=== PATIENT | female | born 1990 | race Caucasian/White ===

== ENCOUNTER → 2017-05-31 | Outpatient (CLI) | payer BC ==
[~2017-05-31] MED LIST: ACET-1256 PO; CALC-440 PO; MULT-506 PO
[2017-05-31 09:16] LABS: BASO % 0.2 %; BASO ABS # 0.02 K/uL (0-0.2); COMPLETE YES; EOS % 2.2 %; HEMATOCRIT 41.2 % (37-47); IG% 0.3 %; LYMPH % 16.3 %; LYMPH ABS # 1.43 K/uL (1.2-3.4); MEAN CELL VOLUME 98.6 fL (80-100); MEAN CORPUSCULAR HEMOGLOBIN 32.8 pg (25-34); MEAN CORPUSCULAR HGB CONC 33.3 g/dl (32-36); MEAN PLATELET VOLUME 10.2 fL (7.4-10.4); MONO % 9.9 %; NEUT % 71.1 %; PLATELET COUNT 239 K/uL (130-400); RED BLOOD COUNT 4.18 M/uL (4.2-5.4); WHITE BLOOD COUNT 8.75 K/uL (4.8-10.8)
[2017-05-31 09:46] LABS: ALT/SGPT 39 U/L (12-78); BLOOD UREA NITROGEN 7 mg/dl (7-18); BUN/CREATININE RATIO 11.8 (10-20); CALCIUM 8.7 mg/dl (8.5-10.1); CARBON DIOXIDE 28 mmol/L (21-32); CHLORIDE 107 mmol/L (98-107); CHOLESTEROL 132 mg/dl (0-200); CREATININE 0.61 mg/dl (0.60-1.20); GLUCOSE 86 mg/dl (70-99); SODIUM 142 mmol/L (136-145); TRIGLYCERIDES 56 mg/dl (0-150); VERY LOW DENSITY LIPOPROT CALC 11 mg/dl
[2017-05-31 09:56] LABS: ALKALINE PHOSPHATASE 83 U/L (45-117); AST/SGOT 29 U/L (15-37); CHOLESTEROL/HDL RATIO 1.4; HDL CHOLESTEROL 96 mg/dl; LDL CHOLESTEROL CALCULATED 25 mg/dl
== END | disposition home or self-care (01) ==
LOC: C.LAB 08:36
PROVIDERS: ATTEND Nurse Practitioner Adult Health
DX: F41.9 Anxiety disorder, unspecified (principal); Z98.84 Bariatric surgery status; E55.9 Vitamin D deficiency, unspecified; E66.01 Morbid (severe) obesity due to excess calories

== ENCOUNTER → 2017-06-08 | Outpatient (CLI) | payer BC ==
--- NOTE | 2017-06-08 19:32 | DIAGNOSTIC IMAGING REPORT ---
CHEST 2 VIEWS ROUTINE CLINICAL HISTORY: COUGH dyspnea COMPARISON STUDY: No previous studies for comparison. FINDINGS: The bones soft tissues and hemidiaphragms are normal. The cardiomediastinal silhouette is normal. The lungs are clear. The pulmonary vasculature is normal. IMPRESSION: Negative chest. The above report was generated using voice recognition software. It may contain grammatical, syntax or spelling errors. Electronically signed by: Daren Peters M.D. 06/08/2017 7:31 PM Dictated Date/Time: 06/08/2017 7:30 PM
== END | disposition home or self-care (01) ==
LOC: C.RAD 19:13
PROVIDERS: ATTEND Nurse Practitioner Family
DX: R05 Cough (principal)

== ENCOUNTER → 2017-09-01 | Outpatient (CLI) | payer BC ==
[2017-09-03 21:35] LABS: HSV TYPE 1 DNA Not Detected (Not Detected); HSV TYPE 1&2 DNA SOURCE Whole Blood; HSV TYPE 2 DNA Not Detected (Not Detected)
[2017-09-04 02:52] LABS: CHLAMYDIA TRACH RNA*** NOT DETECTED (NOT DETECTED); GC (NEIS GONORRHOEAE)RNA** NOT DETECTED (NOT DETECTED)
== END | disposition home or self-care (01) ==
LOC: C.LAB1850 16:08
PROVIDERS: ATTEND Nurse Practitioner Adult Health
DX: Z20.2 Contact with and (suspected) exposure to infections with a predominantly sexual mode of transmission (principal); F10.10 Alcohol abuse, uncomplicated

== ENCOUNTER → 2017-09-25 | Outpatient (CLI) | payer OTHER ==
[~2017-09-25] MED LIST changes: +ATR25 PO; +AZIT-60 PO; +BCPILLS PO; +CITA40TA12 PO; +HYDR25CA PO; +NALT50TA16 PO; +NALT50TA5 PO; +PRED20TA2 PO; +SERT-234 PO; +ZLF50 PO
== END | disposition home or self-care (01) ==
LOC: C.LAB 23:19
DX: Z02.83 Encounter for blood-alcohol and blood-drug test (principal)

== ENCOUNTER 2017-09-26 08:32 | Inpatient (IN) | payer BC, OTHER ==
[~2017-09-26] VITALS: Ht 160 cm; Wt 131.2 kg
[~2017-09-26 08:32] MED LIST changes: -ATR25 PO; -AZIT-60 PO; -BCPILLS PO; -CITA40TA12 PO; -HYDR25CA PO; -NALT50TA16 PO; -NALT50TA5 PO; -PRED20TA2 PO; -SERT-234 PO; -ZLF50 PO
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
[2017-09-26] MEDS ORDERED: CITA40TA12 PO (09:29)
[2017-09-26] MEDS ORDERED: BCPILLS PO (09:29)
[2017-09-26 09:43] LABS: BASO % 0.2 %; BASO ABS # 0.02 K/uL (0-0.2); EOS % 0.8 %; EOS ABS # 0.08 K/uL (0-0.5); HEMATOCRIT 36.7 % (37-47); HEMOGLOBIN 12.8 g/dL (12.0-16.0); IG# 0.03 K/uL (0.00-0.02); LYMPH % 15.5 %; LYMPH ABS # 1.49 K/uL (1.2-3.4); MEAN CELL VOLUME 95.6 fL (80-100); MEAN CORPUSCULAR HEMOGLOBIN 33.3 pg (25-34); MEAN CORPUSCULAR HGB CONC 34.9 g/dl (32-36); MEAN PLATELET VOLUME 10.1 fL (7.4-10.4); MONO % 7.8 %; MONO ABS # 0.75 K/uL (0.11-0.59); NEUT % 75.4 %; NEUT ABS # 7.24 K/uL (1.4-6.5); PLATELET COUNT 280 K/uL (130-400); RED CELL DISTRIBUTION WIDTH CV 12.3 % (11.5-14.5); RED CELL DISTRIBUTION WIDTH SD 42.9 fL (36.4-46.3); WHITE BLOOD COUNT 9.61 K/uL (4.8-10.8)
[2017-09-26] MEDS ORDERED: ACETAMINOPHEN 500 MG TAB PO ONE (09:52)
[2017-09-26 09:59] LABS: ALBUMIN 3.6 gm/dl (3.4-5.0)
[2017-09-26] MEDS ORDERED: NURSING VERBAL MED ORDER ONE (10:00)
[2017-09-26 10:03] LABS: BLOOD UREA NITROGEN 10 mg/dl (7-18); CALCIUM 8.3 mg/dl (8.5-10.1); CARBON DIOXIDE 24 mmol/L (21-32); CREATININE 0.52 mg/dl (0.60-1.20); GLUCOSE 81 mg/dl (70-99); POTASSIUM 4.1 mmol/L (3.5-5.1); SODIUM 139 mmol/L (136-145)
[2017-09-26 10:13] LABS: ALKALINE PHOSPHATASE 68 U/L (45-117); ALT/SGPT 21 U/L (12-78); AST/SGOT 19 U/L (15-37); LIPASE 60 U/L (73-393)
[2017-09-26] MEDS ORDERED: NURSING VERBAL MED ORDER SCH (12:00)
[2017-09-26 12:06] VITALS: BP 126/81; PULSE 85; TEMP 36.5; Ht 160 cm; Wt 131.2 kg
[2017-09-26 12:40] VITALS: O2SAT 99
[2017-09-26] MEDS ORDERED: SODIUM CHLORIDE 0.65% NA SOLN 45 ML (OCEAN) PRN (13:00)
[2017-09-26] MEDS ORDERED: MAGNESIUM HYDROXIDE SUSP 30 ML UDC PO PRN (13:00)
[2017-09-26] MEDS ORDERED: ALUMINUM/MAGNESIUM SUSP 30 ML UDC PO PRN (13:00)
[2017-09-26] MEDS ORDERED: BISMUTH SUBSALICYLATE PER ML OMNICELL CHARGE PO PRN (13:00)
[2017-09-26] MEDS ORDERED: hydrOXYzine HCL 25 MG TAB PO PRN (13:00)
[2017-09-26] MEDS ORDERED: ACETAMINOPHEN 325 MG TAB PO PRN (13:00)
[2017-09-26 13:55] VITALS: BP 126/81; PULSE 85; TEMP 36.5
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
[2017-09-26 16:02] VITALS: BP 125/80; PULSE 85; TEMP 37.1
[2017-09-26] MEDS ORDERED: SERTRALINE HCL 50 MG TAB PO ONE (16:45)
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
[2017-09-26] MEDS: MULTIVITAMIN TAB PO SCH (17:44)
[2017-09-26] MEDS: CALCIUM 600MG + VIT D 400 IU TAB PO SCH (21:01)
[2017-09-26] MEDS: NORETHINDRONE 0.35 MG PO SCH (21:02)
--- NOTE | 2017-09-26 21:20 | NUR ---
Pt signed her 72 hour notice at this time to withdraw from treatment. Pt was tearful and said that she misses her dog.
[2017-09-26 21:31] VITALS: BP 141/84; PULSE 98; TEMP 36.8
--- NOTE | 2017-09-26 22:22 | NUR ---
Litzy spent most of the shift in her room sleeping but did come out to eat. She did get a visit with her sister this evening who brought in a picture of the patient's dog. Litzy got very upset when she saw the picture as she stated she was missing her dog a lot. Litzy stated that she needs to work on trying to find healthy coping skills outside of her alcohol consumption. She stated that she just started seeing Diaz Valiente who has been giving her a lot of addiction work to start. Litzy stated that when her sister was in this evening she told the patient she would go to AA meetings with her. Litzy did put in her 72 hour notice at 2120 which this counselor witnessed. She again stated that she was missing her dog and wanted to be discharged tomorrow if possible. This counselor talked about the fact that because she started a new antidepressant the clinicians like to usually wait at least 24 hours before discharging a patient. Litzy was understanding of this and understood that if the clinician felt she was not ready to leave at the end of the 72 hours they make ask her to rescind the notice. Litzy did attend community meeting and rated her mood as a "7" and felt good that she had sought out help.
--- NOTE | 2017-09-27 03:07 | NUR ---
Patient's admission orders were reviewed.
[2017-09-27 06:58] VITALS: BP_SYST 103; BP_SYST 127; BP_DIAS 65; BP_DIAS 83; PULSE 80; PULSE 90; TEMP 36.8
[2017-09-27] MEDS: CALCIUM 600MG + VIT D 400 IU TAB PO SCH ×2 (08:44→21:48)
[2017-09-27] MEDS: MULTIVITAMIN TAB PO SCH (08:44)
[2017-09-27] MEDS: NALTREXONE HCL 50 MG TAB PO SCH (08:44)
[2017-09-27] MEDS: NORETHINDRONE 0.35 MG PO SCH (08:45)
[2017-09-27] MEDS: SERTRALINE HCL 50 MG TAB PO SCH (08:45)
--- NOTE | 2017-09-27 11:59 | NUR ---
Litzy attended unit programming this morning and participated well. She rates her mood an "8" .Mood somewhat improved with increased affect.
[2017-09-27 12:33] VITALS: BP 137/81; PULSE 71; TEMP 37
[2017-09-27 17:43] VITALS: BP 112/78; PULSE 78; TEMP 36.6
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
[2017-09-27 21:20] VITALS: BP 128/82; PULSE 81; TEMP 36.6
--- NOTE | 2017-09-27 21:32 | NUR ---
Pt has spent more time out of her room and interacting with staff/peers. She attended all groups, rating her overall mood an "8/10" and feeling "happy". Pt stated she has been better able to "think in more positive ways". A family meeting was scheduled with her sister and father for Thursday. She stated feeling like her family has been more understanding of her situation. Pt stated feeling hopeful for discharge after the meeting. She denies active thoughts of self harm. She remains on suicide precautions.
[2017-09-27] MEDS: hydrOXYzine HCL 25 MG TAB PO PRN (21:49)
--- NOTE | 2017-09-28 02:07 | NUR ---
kristy was asleep on 0100 rounds but back awake on 0115 rounds. she declined another prn hs dose of vistaril for sleep aid. Addendum: 09/28/17 at 0210 by Clare Lazo RN kristy appeared to be asleep on 0200 rounds.
--- NOTE | 2017-09-28 04:16 | NUR ---
24 hour chart orders reviewed
[2017-09-28 06:58] VITALS: BP_SYST 124; BP_SYST 135; BP_DIAS 73; BP_DIAS 88; PULSE 76; TEMP 36.9
[2017-09-28] MEDS: NALTREXONE HCL 50 MG TAB PO SCH (08:35)
[2017-09-28] MEDS: MULTIVITAMIN TAB PO SCH (08:35)
[2017-09-28] MEDS: SERTRALINE HCL 50 MG TAB PO SCH (08:35)
[2017-09-28] MEDS: CALCIUM 600MG + VIT D 400 IU TAB PO SCH ×2 (08:35→21:16)
[2017-09-28] MEDS: NORETHINDRONE 0.35 MG PO SCH (08:35)
[2017-09-28 12:23] VITALS: BP 141/86; PULSE 71; TEMP 36.7
--- NOTE | 2017-09-28 13:13 | NUR ---
Met w/ pt to discuss her status.Her 72 hr notice is still outstanding w/o plan to rescind.Pt describes her overall is improved.She reports earlier today having a positive phone interaction w/her work supervisor [employer] who reassured her that she will not be fired.Pt is now feeling more in control,no longer wanting to harm self.Pt denies any alcohol cravings.She has been attending all groups w/ minimal staff prompts.She has been spending more of her free time in the day area socializing w/ peers.
[2017-09-28] MEDS ORDERED: GUAIFENESIN 600 MG TABCR PO PRN (14:45)
--- NOTE | 2017-09-28 14:58 | NUR ---
Pts sister Sarbjit confirmed the guns are secured.
[2017-09-28 16:17] VITALS: BP 118/70; PULSE 84; TEMP 36.9
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
--- NOTE | 2017-09-28 19:30 | NUR ---
Pt requested/received Mucinex 1200 mg for c/o URI. See EMAR. Pt encouraged to increase fluids. Addendum: 09/28/17 at 2122 by Padmini Hathaway RN Pt stated "not much relief" from the Mucinex. She is trying to increase her fluids.
[2017-09-28 20:51] VITALS: BP 122/70; PULSE 76; TEMP 36.6
[2017-09-28] MEDS: hydrOXYzine HCL 25 MG TAB PO PRN (21:17)
--- NOTE | 2017-09-28 21:20 | NUR ---
Pt requested/received Vistaril 50 mg PRN for insomnia. See EMAR. Addendum: 09/28/17 at 2222 by Padmini Hathaway RN Pt appears to be asleep as she is audibly snoring in her bed.
--- NOTE | 2017-09-28 21:57 | NUR ---
Pt feels she has been having a very good day. Pt denies any anxiety today other than anticipatory anxiety regarding her discharge. Pt feels she has received more support from her family than what she initially anticipated. Pt attended and participated in all unit programming and supportive of her peers. Completed safety plan. Remains on suicide precautions.
--- NOTE | 2017-09-29 02:37 | NUR ---
24 hour chart orders reviewed
[2017-09-29 07:05] VITALS: BP_SYST 115; BP_SYST 135; BP_DIAS 78; BP_DIAS 86; PULSE 81; PULSE 88; TEMP 36.8
[2017-09-29] MEDS: SERTRALINE HCL 50 MG TAB PO SCH (07:58)
[2017-09-29] MEDS: NORETHINDRONE 0.35 MG PO SCH (07:58)
[2017-09-29] MEDS: NALTREXONE HCL 50 MG TAB PO SCH (07:58)
[2017-09-29] MEDS: MULTIVITAMIN TAB PO SCH (07:58)
[2017-09-29] MEDS: CALCIUM 600MG + VIT D 400 IU TAB PO SCH (07:58)
--- NOTE | 2017-09-29 10:05 | NUR ---
Litzy has been out of her room this morning and she is superficially bright. Her mood is improving with increased affect and energy. She is attending unit programming.
--- NOTE | 2017-09-29 10:15 | NUR ---
Met with pt and her sister Sarbjit. Pt was planning on discharge and sister is in support of this. Pt said that she has learned a lot since her admission and is working on coping skills. They talked about pt's recent DUI and implications of this. Pt recognizes the need to make changes and is agreeable to go to [facility] through [facility] in [place]. Pt says she is changing friends to get rid of those who were only drinking pals. She denies suicidal thoughts. There were not specific safety concerns but when asking about alcohol in the house, there is some there. Pt insists this will not be a problem because she drank in the bars and not at home. Sister is an advocate. Mother who was not at the meeting has some addicition issues with prescibed meds and does not have insight into pt's needs. Pt is planning to follow up with Diaz Valiente for therapy, [facility] for groups, and Jenny Witt at [facility] for therapy.
[2017-09-29] MEDS ORDERED: NALT50TA16 PO (10:19)
[2017-09-29] MEDS ORDERED: ZLF50 PO (10:19)
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
--- NOTE | 2017-09-29 10:37 | NUR ---
discharge summary: see interdisciplinary treatment team review for 09/29/17
--- NOTE | 2017-09-29 10:54 | NUR ---
discharge to front entrance with mother at 1050 for discharge to home. Belongings were returned and patient stated understanding of discharge instructions.
== END 2017-09-29 10:50 | disposition home or self-care (01) | DRG 881 ==
LOC: C.EDB 08:33 → C.MHU 11:46
PROVIDERS: ADMIT Psychiatry & Neurology Psychiatry; ATTEND Psychiatry & Neurology Psychiatry
DX: F32.9 Major depressive disorder, single episode, unspecified (principal); Z68.43 Body mass index [BMI] 50.0-59.9, adult; F41.9 Anxiety disorder, unspecified; F10.10 Alcohol abuse, uncomplicated; K21.9 Gastro-esophageal reflux disease without esophagitis; E66.01 Morbid (severe) obesity due to excess calories; Z98.84 Bariatric surgery status

== ENCOUNTER 2018-01-02 19:28 | Emergency (ER) | payer BC, OTHER ==
[~2018-01-02] VITALS: Ht 160 cm; Wt 136.2 kg
[~2018-01-02 19:28] MED LIST changes: -ACET-1256 PO; +BCPILLS PO; -CALC-440 PO; -MULT-506 PO; +NALT50TA16 PO; +ZLF50 PO
[2018-01-02 19:30] VITALS: TEMP 36.4; Ht 160 cm; Wt 136.2 kg
--- NOTE | 2018-01-02 19:39 | EMERGENCY ROOM VISIT NOTE ---
History Report prepared by Alicia: Matheus Sheriff Under the Supervision of: Dr. Trace Mazariegos M.D. First contact with patient: 19:32 Chief Complaint: FLU LIKE SX Stated Complaint: COUGH,SOB,CONGESTION,SORE THROAT History of Present Illness The patient is a 27 year old female who presents to the Emergency Room with complaints of worsening breathing difficulties over the past few days. She states that she was sick in October, and has had a lingering cough since then, but now it "hurts to breathe". She notes that she "cannot take a deep breath". The patient says that she has been congested, and coughing so hard that "it feels like [she] is popping blood vessels in [her] face". The patient states that she is not taking an inhaler. She is only on Naltrexone and Sertraline daily. She notes that her last menstrual period just ended, and she notes no chance of or retaining a tampon. Source of History: patient Onset: Over past few days Position: other (global) Symptom Intensity: "cannot take a deep breath" Quality: other (breathing difficulties) Timing: worsening Associated Symptoms: + cough, + SOB Note: Associated symptoms: Hurts to breathe. Review of Systems See HPI for pertinent positives & negatives. A total of 10 systems reviewed and were otherwise negative. Past Medical & Surgical Medical Problems: (1) Alcohol use disorder (2) Anxiety (3) Bronchitis (4) Gastroenteritis (5) Gastroenteritis (6) GERD (gastroesophageal reflux disease) (7) Morbid Obesity (8) Polycystic Ovaries (9) Tonsillectomy and adenoidectomy Surgical Problems: (1) History of gastric bypass Family History Cancer Diabetes mellitus Heart disease Hypertension Social History Smoking Status: Never Smoker Alcohol Use: occasionally Housing Status: lives with family Occupation Status: employed Current/Historical Medications Scheduled Azithromycin (Zithromax), 250 MG PO DAILY Control Pills ( Control Pills), 1 TAB PO DAILY Hydroxyzine Pamoate (Vistaril), 25-50 MG PO HS Naltrexone Hcl (Naltrexone Hcl), 50 MG PO DAILY Prednisone (Prednisone Tab), 0 PO DAILY Sertraline (Zoloft), 150 MG PO DAILY Scheduled PRN Hydroxyzine HCl (Hydroxyzine HCl), 37.5 MG PO TID PRN for Anxiety Allergies Coded Allergies: No Known Allergies (Unverified , 09/26/17) Physical Exam Vital Signs Date Time Temp Pulse Resp B/P (MAP) Pulse Ox O2 Delivery O2 Flow Rate FiO2 01/02/18 21:37 113 19 166/95 95 01/02/18 20:46 97 01/02/18 20:14 96 Room Air 01/02/18 20:09 88 18 100 Room Air 01/02/18 19:30 36.4 99 18 128/92 99 Room Air Physical Exam GENERAL: Awake, alert, well-appearing, in no acute distress HENT: Normocephalic, atraumatic. Oropharynx unremarkable. EYES: Normal conjunctiva. Sclera non-icteric. NECK: Supple. No nuchal rigidity. FROM. No JVD. RESPIRATORY: Slight wheezes at the bases. CARDIAC: Regular rate, normal rhythm. Extremities warm and well perfused. Pulses equal. ABDOMEN: Soft, non-distended. No tenderness to palpation. No rebound or guarding. No masses. RECTAL: Deferred. MUSCULOSKELETAL: Chest examination reveals no tenderness. The back is symmetrical on inspection without obvious abnormality. There is no CVA tenderness to palpation. No joint edema. LOWER EXTREMITIES: Calves are equal size bilaterally and non-tender. No edema. No discoloration. NEURO: Normal sensorium. No sensory or motor deficits noted. SKIN: No rash or jaundice noted. Medical Decision & Procedures ER Provider Diagnostic Interpretation: X-ray results as stated below per interpretation by me and the radiologist: CHEST ONE VIEW PORTABLE CLINICAL HISTORY: 27 years-old Female presenting with Pt c/o SOB. TECHNIQUE: Portable upright AP view of the chest was obtained. COMPARISON: 06/08/2017. FINDINGS: Cardiac silhouette top normal in size. No focal opacity. No large effusion or pneumothorax. Osseous structures normal. Upper abdomen normal. IMPRESSION: 1. Top normal cardiac size. Otherwise no evidence of acute cardiopulmonary disease. Electronically signed by: Dariel Pacheco M.D. 01/02/2018 8:56 PM Dictated Date/Time: 01/02/2018 8:55 PM Laboratory Results 01/02/18 20:00 Red Blood Count 4.35, Mean Corpuscular Volume 94.5, Mean Corpuscular Hemoglobin 32.0, Mean Corpuscular Hemoglobin Concent 33.8, Mean Platelet Volume 10.5, Neutrophils (%) (Auto) 66.0, Lymphocytes (%) (Auto) 18.8, Monocytes (%) (Auto) 10.6, Eosinophils (%) (Auto) 4.2, Basophils (%) (Auto) 0.2, Neutrophils # (Auto ) 5.83, Lymphocytes # (Auto) 1.66, Monocytes # (Auto) 0.94, Eosinophils # (Auto ) 0.37, Basophils # (Auto) 0.02 01/02/18 20:00 Test 01/02/18 19:50 01/02/18 20:00 01/02/18 20:07 01/02/18 20:09 Influenza Type A Antigen Neg for Influ A (NEG) Influenza Type B Antigen Neg for Influ B (NEG) White Blood Count 8.84 K/uL (4.8-10.8) Red Blood Count 4.35 M/uL (4.2-5.4) Hemoglobin 13.9 g/dL (12.0-16.0) Hematocrit 41.1 % (37-47) Mean Corpuscular Volume 94.5 fL (80-100) Mean Corpuscular Hemoglobin 32.0 pg (25-34) Mean Corpuscular Hemoglobin Concent 33.8 g/dl (32-36) Platelet Count 287 K/uL (130-400) Mean Platelet Volume 10.5 fL (7.4-10.4) Neutrophils (%) (Auto) 66.0 % Lymphocytes (%) (Auto) 18.8 % Monocytes (%) (Auto) 10.6 % Eosinophils (%) (Auto) 4.2 % Basophils (%) (Auto) 0.2 % Neutrophils # (Auto) 5.83 K/uL (1.4-6.5) Lymphocytes # (Auto) 1.66 K/uL (1.2-3.4) Monocytes # (Auto) 0.94 K/uL (0.11-0.59) Eosinophils # (Auto) 0.37 K/uL (0-0.5) Basophils # (Auto) 0.02 K/uL (0-0.2) RDW Standard Deviation 41.5 fL (36.4-46.3) RDW Coefficient of Variation 12.0 % (11.5-14.5) Immature Granulocyte % (Auto) 0.2 % Immature Granulocyte # (Auto) 0.02 K/uL (0.00-0.02) Est Creatinine Clear Calc Drug Dose 151.5 ml/min Estimated GFR () 125.7 Estimated GFR (Non- 108.5 BUN/Creatinine Ratio 11.6 (10-20) Calcium Level 9.0 mg/dl (8.5-10.1) Total Bilirubin 0.2 mg/dl (0.2-1) Aspartate Amino Transf (AST/SGOT) 19 U/L (15-37) Alanine Aminotransferase (ALT/SGPT) 24 U/L (12-78) Alkaline Phosphatase 87 U/L (45-117) Total Protein 7.8 gm/dl (6.4-8.2) Albumin 3.9 gm/dl (3.4-5.0) Globulin 3.9 gm/dl (2.5-4.0) Albumin/Globulin Ratio 1.0 (0.9-2) Chemistry Specimen Hemolysis Bedside Hemoglobin 13.9 g/dl (12.0-16.0) Bedside Hematocrit 41 % (37-47) Bedside Sodium 140 mEq/L (135-144) Bedside Potassium 3.9 mEq/L (3.3-5.0) Bedside Chloride 103 mEq/L (101-112) Bedside Total CO2 27 mEq/l (24-31) Anion Gap 15.0 mmol/L (16-25) Bedside Blood Urea Nitrogen 10 mg/dl (7-18) Bedside Creatinine 0.6 mg/dl (0.6-1.3) Bedside Glucose (other) 86 mg/dl (70-99) Bedside Ionized Calcium (Louie) 1.13 mmol/l (1.12-1.32) Bedside D-Dimer 416 ng/mlFEU (0-450) Labs reviewed by ED physician. Medications Administered Medications (Trade) Dose Ordered Sig/Kyleigh Route Start Time Stop Time Status Last Admin Dose Admin Albuterol/ Ipratropium (Duoneb) 12 ml ONE ONCE INH 01/02/18 19:45 01/02/18 19:46 DC 01/02/18 20:06 12 ML Methylprednisolone Sodium Succinate (Solu-Medrol IV) 125 mg NOW STAT IV 01/02/18 21:19 01/02/18 21:21 DC 01/02/18 21:30 125 MG Azithromycin (Zithromax Tab) 500 mg NOW STAT PO 4/7/18 21:19 01/02/18 21:21 DC 01/02/18 21:30 500 MG Albuterol (Ventolin Hfa Inhaler) 2 puffs NOW STAT INH 01/02/18 21:21 01/02/18 21:22 DC 01/02/18 21:30 2 PUFFS ED Course 1932: Past medical records reviewed. The patient was evaluated in room C5. A complete history and physical examination was performed. 1944: DuoNeb 12 ml INH. 2118: Zithromax Tab 500 mg PO, Solu-Medrol IV 125 mg IV. 2120: Upon reexamination the patient is resting comfortably. I discussed results and treatment plan with the patient. She verbalizes agreement and understanding. The patient is ready for discharge. Ordered Ventolin Hfa Inhaler 2 puffs INH. Medical Decision Differential diagnosis: Etiologies such as infections, reactive airway disease, pneumonia, pneumothorax , COPD, CHF, cardiac ischemia, pulmonary embolism, musculoskeletal, gastrointestinal, as well as others were entertained. This is a 27-year-old female who presents emergency department with cough. The patient does not have an elevation in her white blood cell count and has a normal d-dimer. In addition she has normal renal profile normal liver profile. She was given an hour-long breathing treatment here in the emergency department. Her chest x-ray does not show any evidence of pneumonia. I do believe that the patient can be placed on steroids for bronchitis. She was also given an inhaler and told to use this twice every 6 hours. I feel this point the patient is safe enough to be discharged home to follow-up with her primary care physician. Patient was in agreement with the treatment plan. Medication Reconcilliation Current Medication List: was personally reviewed by me Blood Pressure Screening Patient's blood pressure: Elevated blood pressure Blood pressure disposition: Elevated BP felt to be situational Impression Primary Impression: Bronchitis Scribe Attestation The scribe's documentation has been prepared under my direction and personally reviewed by me in its entirety. I confirm that the note above accurately reflects all work, treatment, procedures, and medical decision making performed by me. Departure Information Dispostion Home / Self-Care Prescriptions Azithromycin (ZITHROMAX) 250 Mg Tab 250 MG PO DAILY, #4 TAB Prov: Trace Mazariegos MD 01/02/18 Prednisone (Prednisone Tab) 20 Mg Tab 0 PO DAILY, #7 TAB 2 TABS DAILY FOR 2 DAYS, THEN 1 TAB DAILY FOR 2 DAYS, THEN 1/2 TAB DAILY FOR 2 DAYS. Prov: Trace Mazariegos MD 01/02/18 Referrals Radha Matthews C.R.N.P. (PCP) Nicolás Mcgowan III, CRNP Patient Instructions Bronchitis Acute, [facility] Additional Instructions Use inhaler twice eevry 6 hours You have been examined and treated today on an emergency basis only. This is not a substitute for, or an effort to provide, complete comprehensive medical care. It is impossible to recognize and treat all injuries or illnesses in a single emergency department visit. It is therefore important that you follow up closely with your PCP. Call as soon as possible for an appointment. Thank you for your time and consideration. I look forward to speaking with you again soon. Please don't hesitate to call us if you have any questions.
[2018-01-02] MEDS ORDERED: ALBUT/IPRATROP 3MG/0.5MG NEB 3 ML VIAL INH ONE (19:45)
[2018-01-02] MEDS ORDERED: NALT50TA5 PO (19:51)
[2018-01-02] MEDS ORDERED: SERT-234 PO (19:54)
[2018-01-02] MEDS ORDERED: ATR25 PO (20:01)
[2018-01-02] MEDS ORDERED: HYDR25CA PO (20:02)
[2018-01-02 20:09] VITALS: PULSE 88; O2SAT 100
[2018-01-02 20:14] VITALS: O2SAT 96
[2018-01-02 20:16] LABS: BASO % 0.2 %; BASO ABS # 0.02 K/uL (0-0.2); EOS % 4.2 %; EOS ABS # 0.37 K/uL (0-0.5); HEMATOCRIT 41.1 % (37-47); HEMOGLOBIN 13.9 g/dL (12.0-16.0); IG# 0.02 K/uL (0.00-0.02); LYMPH % 18.8 %; LYMPH ABS # 1.66 K/uL (1.2-3.4); MEAN CELL VOLUME 94.5 fL (80-100); MEAN CORPUSCULAR HGB CONC 33.8 g/dl (32-36); MEAN PLATELET VOLUME 10.5 fL (7.4-10.4); MONO % 10.6 %; MONO ABS # 0.94 K/uL (0.11-0.59); NEUT ABS # 5.83 K/uL (1.4-6.5); PLATELET COUNT 287 K/uL (130-400); RED CELL DISTRIBUTION WIDTH SD 41.5 fL (36.4-46.3); WHITE BLOOD COUNT 8.84 K/uL (4.8-10.8)
[2018-01-02 20:17] LABS: INFLUENZA B ANTIGEN Neg for Influ B (NEG)
[2018-01-02 20:19] LABS: ISTAT CREATININE 0.6 mg/dl (0.6-1.3); ISTAT IONIZED CALCIUM 1.13 mmol/l (1.12-1.32); ISTAT POTASSIUM 3.9 mEq/L (3.3-5.0)
[2018-01-02 20:38] LABS: ALBUMIN 3.9 gm/dl (3.4-5.0); CREATININE 0.75 mg/dl (0.60-1.20); POTASSIUM 3.9 mmol/L (3.5-5.1); TOTAL PROTEIN 7.8 gm/dl (6.4-8.2)
--- NOTE | 2018-01-02 20:57 | DIAGNOSTIC IMAGING REPORT ---
CHEST ONE VIEW PORTABLE CLINICAL HISTORY: 27 years-old Female presenting with Pt c/o SOB. TECHNIQUE: Portable upright AP view of the chest was obtained. COMPARISON: 06/08/2017. FINDINGS: Cardiac silhouette top normal in size. No focal opacity. No large effusion or pneumothorax. Osseous structures normal. Upper abdomen normal. IMPRESSION: 1. Top normal cardiac size. Otherwise no evidence of acute cardiopulmonary disease. Electronically signed by: Dariel Pacheco M.D. 01/02/2018 8:56 PM Dictated Date/Time: 01/02/2018 8:55 PM
[2018-01-02] MEDS ORDERED: METHYLPREDNISOLONE 125 MG VIAL IV STA (21:19)
[2018-01-02] MEDS ORDERED: AZITHROMYCIN 250 MG TAB PO STA (21:19)
[2018-01-02] MEDS ORDERED: ALBUTEROL HFA 8 GM INHALER INH STA (21:21)
[2018-01-02] MEDS ORDERED: PRED20TA2 PO (21:22)
[2018-01-02] MEDS ORDERED: AZIT-60 PO (21:22)
[2018-01-02 21:37] VITALS: BP 166/95; PULSE 113; O2SAT 95
== END 2018-01-02 21:40 | disposition home or self-care (01) ==
LOC: C.EDB 19:29 → C.EDC 21:40
DX: J40 Bronchitis, not specified as acute or chronic (principal); F41.9 Anxiety disorder, unspecified; E66.01 Morbid (severe) obesity due to excess calories; Z79.899 Other long term (current) drug therapy